=== PATIENT | female | born 1985 ===

== ENCOUNTER 2020-04-27 07:15 | Inpatient (IN) | payer OTHER ==
[~2020-04-27] VITALS: Ht 162.6 cm; Wt 74.8 kg
[~2020-04-27 07:15] MED LIST: CODE1TAB37 PO; Colace 100MG PO; KETO10TA2 PO; Mylicon 125MG PO
[2020-05-06] MEDS ORDERED: IBUPROFEN800 MG PO (07:04)
[2020-05-06] MEDS ORDERED: NEURONTIN600 MG PO (07:04)
== END 2020-05-06 07:28 | disposition home or self-care (01) | DRG 743 ==
LOC: OB/GYN 05-04 04:40 → O/R 05-04 04:40 → SURH 05-04 07:15 → OB/GYN 05-04 11:06
PROVIDERS: ADMIT Obstetrics & Gynecology; ATTEND Obstetrics & Gynecology
PROC: 0UB10ZZ Excision of Left Ovary, Open Approach (ICD-10-PCS; 2020-05-04)
PROC: 0UT90ZZ Resection of Uterus, Open Approach (ICD-10-PCS; principal; 2020-05-04 09:00)
PROC: 0UT70ZZ Resection of Bilateral Fallopian Tubes, Open Approach (ICD-10-PCS; 2020-05-04 09:00)
DX: D25.1 Intramural leiomyoma of uterus (principal); N93.8 Other specified abnormal uterine and vaginal bleeding; N80.1 Endometriosis of ovary